=== PATIENT | female | born 2000 | race Caucasian/White ===

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

== ENCOUNTER 2019-01-28 15:39 | Emergency (ER) | payer BC ==
[2019-01-28 16:00] VITALS: BP 125/83; PULSE 89
--- NOTE | 2019-01-28 16:04 | EDM.PDOC ---
ED HPI GENERAL MEDICAL PROBLEM - General Chief Complaint: Genitourinary Problem Stated Complaint: UTI Time Seen by Provider: 01/28/19 16:04 Source of Information: Reports: Patient - History of Present Illness INITIAL COMMENTS - FREE TEXT/NARRATIVE: HISTORY AND PHYSICAL: History of present illness: [A shunt presents with frequency and dysuria no fever nausea vomiting chills sweats ] Review of systems: As per history of present illness and below otherwise all systems reviewed and negative. Past medical history: As per history of present illness and as reviewed below otherwise noncontributory. Surgical history: As per history of present illness and as reviewed below otherwise noncontributory. Social history: No reported history of drug or alcohol abuse. Family history: As per history of present illness and as reviewed below otherwise noncontributory. Physical exam: HEENT: Atraumatic, normocephalic, pupils reactive, negative for conjunctival pallor or scleral icterus, mucous membranes moist, throat clear, neck supple, nontender, trachea midline. Lungs: Clear to auscultation, breath sounds equal bilaterally, chest nontender. Heart: S1S2, regular, negative for clicks, rubs, or JVD. Abdomen: Soft, nondistended, nontender. Negative for masses or hepatosplenomegaly. Negative for costovertebral tenderness. Pelvis: Stable nontender. Genitourinary: Deferred. Rectal: Deferred. Extremities: Atraumatic, negative for cords or calf pain. Neurovascular unremarkable. Neuro: Awake, alert, oriented. Cranial nerves II through XII unremarkable. Cerebellum unremarkable. Motor and sensory unremarkable throughout. Exam nonfocal. Diagnostics: [UA, hCG ] Therapeutics: [Cipro ] Impression: [ UTI ] Definitive disposition and diagnosis as appropriate pending reevaluation and review of above. pelvic Pain Score (Numeric/FACES): 5 - Related Data Allergies Allergy/AdvReac Type Severity Reaction Status Date / Time No Known Allergies Allergy Verified 01/28/19 16:00 Home Meds: Home Meds . [No Known Home Meds] 01/28/19 [History] Past Medical History - Past Health History Medical/Surgical History: Denies Medical/Surgical History - Infectious Disease History Infectious Disease History: Reports: None Social & Family History - Family History Family Medical History: Noncontributory - Tobacco Use Smoking Status *Q: Unknown Ever Smoked - Caffeine Use Caffeine Use: Reports: Coffee, Energy Drinks, Soda, Tea - Recreational Drug Use Recreational Drug Use: Yes Drug Use in Last 12 Months: Yes Recreational Drug Type: Reports: Marijuana/Hashish Recreational Drug Use Frequency: Weekly ED ROS GENERAL - Review of Systems Review Of Systems: See Below ED EXAM, GENERAL - Physical Exam Exam: See Below Course - Vital Signs Last Recorded V/S: Last Vital Signs Temp 96.7 F 01/28/19 15:58 Pulse 89 01/28/19 15:58 Resp 18 01/28/19 15:58 BP 125/83 01/28/19 15:58 Pulse Ox 98 01/28/19 15:58 - Orders/Labs/Meds Orders: Active Orders 24 hr Category Date Time Status CULTURE URINE [RM] Stat Lab 01/28/19 16:00 Received Labs: Laboratory Tests 01/28/19 01/28/19 Range/Units 16:00 16:00 Urine Color ORANGE Urine Appearance SLT CLOUDY Urine pH 7.5 (5.0-8.0) Ur Specific [place] 1.010 (1.001-1.035) Urine Protein 100 H (NEGATIVE) mg/dL Urine Glucose (UA) 100 H (NEGATIVE) mg/dL Urine Ketones NEGATIVE (NEGATIVE) mg/dL Urine Occult Blood MODERATE H (NEGATIVE) Urine Nitrite POSITIVE H (NEGATIVE) Urine Bilirubin NEGATIVE (NEGATIVE) Urine Urobilinogen 4.0 H (<2.0) EU/dL Ur Leukocyte Esterase LARGE H (NEGATIVE) Urine RBC 20-30 (0-2/HPF) Urine WBC 40-50 (0-5/HPF) Ur Epithelial Cells OCCASIONAL (NONE-FEW) Urine Bacteria RARE (NEGATIVE) Urine HCG, Qual NEGATIVE (NEGATIVE) Meds: Medications Discontinued Medications Generic Name Dose Route Start Last Admin Trade Name Jonathonq PRN Reason Stop Dose Admin Ciprofloxacin 500 mg 01/28/19 16:49 Ciprofloxacin Hcl PO 01/28/19 16:50 ONETIME ONE Departure - Departure Time of Disposition: 16:51 Disposition: Home, Self-Care 01 Condition: Good Clinical Impression: UTI, Urinary tract infectious disease - Discharge Information Referrals: PCP,Unknown [Primary Care Provider] - Forms: ED Department Discharge Additional Instructions: The following information is given to patients seen in the emergency department who are being discharged to home. This information is to outline your options for follow-up care. We provide all patients seen in our emergency department with a follow-up referral. The need for follow-up, as well as the timing and circumstances, are variable depending upon the specifics of your emergency department visit. If you don't have a primary care physician on staff, we will provide you with a referral. We always advise you to contact your personal physician following an emergency department visit to inform them of the circumstance of the visit and for follow-up with them and/or the need for any referrals to a consulting specialist. The emergency department will also refer you to a specialist when appropriate. This referral assures that you have the opportunity for follow-up care with a specialist. All of these measure are taken in an effort to provide you with optimal care, which includes your follow-up. Under all circumstances we always encourage you to contact your private physician who remains a resource for coordinating your care. When calling for follow-up care, please make the office aware that this follow-up is from your recent emergency room visit. If for any reason you are refused follow-up, please contact the [facility] emergency department at and asked to speak to the emergency department charge nurse. - My Orders Last 24 Hours: My Active Orders 01/28/19 16:00 CULTURE URINE [RM] Stat - Assessment/Plan Last 24 Hours: My Active Orders 01/28/19 16:00 CULTURE URINE [RM] Stat
[2019-01-28] MEDS ORDERED: Ciprofloxacin 500 MG Tab PO ONE (16:49)
== END 2019-01-28 16:58 | disposition home or self-care (01) ==
LOC: MW.ED 15:39
DX: N39.0 Urinary tract infection, site not specified (principal)
CPT/HCPCS: 81001; 81025; 87086; 99283; A9270

== ENCOUNTER 2019-07-10 08:02 | Emergency (ER) | payer BC, OTHER ==
[2019-07-10] MEDS ORDERED: Acetaminophen 500 MG Tab PO ONE (08:23)
[2019-07-10] MEDS ORDERED: Ibuprofen 800 MG Tab PO ONE (08:23)
[2019-07-10] MEDS ORDERED: Dexamethasone 4 MG Tab PO ONE (08:24)
[2019-07-10 08:26] VITALS: BP 109/65; PULSE 102
--- NOTE | 2019-07-10 08:38 | EDM.PDOC ---
ED HPI GENERAL MEDICAL PROBLEM - General Chief Complaint: ENT Problem Stated Complaint: TONSIL PAIN AND FEVER Time Seen by Provider: 07/10/19 08:38 - History of Present Illness INITIAL COMMENTS - FREE TEXT/NARRATIVE: HPI 19-year-old female presents for evaluation of one day of painful sore throat, notes that swelling worsens pain, denies further symptoms, no headache, neck stiffness, changes in vision or hearing, no fevers or chills. Endorses subjective body aches.No new sexual contacts. M/S/F/SocHx notable for: please see HPI; remainder reviewed with patient and in chart. ROS: Negative constitutional, eye, cardiovascular, pulmonary, GI, , MSK, skin , neurologic, psychiatric, endocrine unless noted in the HPI. Exam Gen: Pleasant, non-toxic appearing, resting comfortably. HEENT: Normocephalic, atraumatic. * Ears - TMs with serous effusions bilaterally, bilateral external auditory canals without erythema, inflammation, or swelling, bilateral mastoids nontender without overlying erythema, swelling, or warmth. * Eyes - Bilateral eyes without injection, swelling, or discharge, no proptosis or periorbital erythema, swelling, warmth, or tenderness. * Mouth - Anterior oropharynx with MMM, no lesions appreciated, floor of the mouth is soft and without swelling. Posterior oropharynx is symmetrical tonsillar swelling without exudate, uvula midline, no postnasal drip. No further lesions appreciated. * Nose - Nares without crusting or discharge. * Neck - Neck supple without posterior or anterior cervical chain lymphadenopathy bilaterally. Resp: labored respirations with a normal work of breathing. Card: extremities warm and well perfused. GI: Non-tender to palpation throughout all quadrants, no masses or organomegaly appreciated. : Deferred MSK: No visible deformities, strength and tone without visually appreciable deficit. Neuro: alert and oriented 3, no facial asymmetry, vision and hearing WNL. Heme/Lymph: Deferred Skin: Normal color with no visible lesions (other than noted above). Psych: Mood and affect appropriate. Labs / Imaging (pertinent): rapid strep negative. MDM Previous chart, nursing note, labs, imaging, and vitals reviewed. A: 19-year-old female presents for evaluation of one day of painful sore throat , notes that swelling worsens pain, denies further symptoms, no headache, neck stiffness, changes in vision or hearing, no fevers or chills. DDx: pharyngitis (HSV vs viral NOS vs GAS vs gonoccocal vs bacterial NOS)], EBV , HIV, candidiasis, sinusitis (bacterial, viral), peritonsillar cellulitis, [employer] , RPA, Raymon's angina, epiglottitis. Evaluation: patient with clinically apparent bilateral pharyngitis, rapid strep negative, no features identified on history for gonococcal pharyngitis, oral mucosa without lesions consistent with HSV or candidiasis, doubt bacterial sinusitis given duration of symptoms, low suspicion for peritonsillar cellulitis or abscess given the absence of asymmetric swelling or uvular deviation, RPA is unlikely as the patient can comfortably flex and extend their neck and swallow without difficulty. As phonation is intact and breathing is unlabored doubt epiglottitis. The floor of the mouth is without evidence of Raymon's angina. Lemierre's disease was considered but as the patient does not have signs of [employer] or sepsis, further evaluation was not indicated. ED Course: No clinically significant changes. Patient given 10 mg dexamethasone PO, 1 g acetaminophen, and ibuprofen 800 mg. Disposition: Discharge with return to care as needed. Return to care indications provided. Impression: Pharyngitis. throat Pain Score (Numeric/FACES): 5 - Related Data Allergies Allergy/AdvReac Type Severity Reaction Status Date / Time No Known Allergies Allergy Verified 01/28/19 16:00 Home Meds: Home Meds . [No Known Home Meds] 01/28/19 [History] Past Medical History - Past Health History Medical/Surgical History: Denies Medical/Surgical History Neurological History: Reports: Brain Injury, Migraines - Infectious Disease History Infectious Disease History: Reports: None Social & Family History - Family History Family Medical History: Noncontributory - Tobacco Use Smoking Status *Q: Light Tobacco Smoker Years of Tobacco use: 1 Packs/Tins Daily: 1 - Caffeine Use Caffeine Use: Reports: Coffee, Energy Drinks, Soda, Tea - Recreational Drug Use Recreational Drug Use: No ED ROS GENERAL - Review of Systems Review Of Systems: See Below ED EXAM, GENERAL - Physical Exam Exam: See Below Course - Vital Signs Last Recorded V/S: Last Vital Signs Temp 37.1 C 07/10/19 08:21 Pulse 102 H 07/10/19 08:21 Resp 16 07/10/19 08:21 BP 109/65 07/10/19 08:21 Pulse Ox 97 07/10/19 08:21 - Orders/Labs/Meds Orders: Active Orders 24 hr Category Date Time Status Communication Order [RC] STAT Care 07/10/19 08:36 Ordered CULTURE STREP A CONFIRMATION [] Stat Lab 07/10/19 05:15 Results INFLUENZA A+B AG SCREEN [] Stat Lab 07/10/19 08:20 Ordered STREP SCRN A RAPID W CULT CONF [] Stat Lab 07/10/19 05:15 Results Meds: Medications Discontinued Medications Generic Name Dose Route Start Last Admin Trade Name Hellen PRN Reason Stop Dose Admin Acetaminophen 1,000 mg 07/10/19 08:23 Tylenol Extra Strength PO 07/10/19 08:24 ONETIME ONE Dexamethasone 10 mg 07/10/19 08:24 Dexamethasone PO 07/10/19 08:25 ONETIME ONE Ibuprofen 800 mg 07/10/19 08:23 Motrin PO 07/10/19 08:24 ONETIME ONE Departure - Departure Time of Disposition: 08:37 Disposition: Home, Self-Care 01 Condition: Good Clinical Impression: Pharyngitis - Discharge Information Referrals: PCP,None [Primary Care Provider] - Additional Instructions: You were in seen in the [facility] Emergency Department for evaluation of a sore throat, the time of your evaluation your found have pharyngitis. This is typically a self limited disease that will resolve in 4-5 days. You have been given a dose steroids to reduce inflammation and should take ibuprofen and acetaminophen instructed below. Please read and follow all of the instructions below. Please follow up with your primary care physician within 48 hours repeat evaluation. When calling for follow-up care, please make the office aware that this follow-up is from your recent emergency room visit. If for any reason you are refused follow-up, please contact the [facility] Emergency Department at and asked to speak to the emergency department charge nurse. Your care today was limited to identifying and treating emergent medical problems only. Many people have subtle differences in their test results that require follow up with their outpatient physician(s) to correctly determine if this represents a normal variation or concerning abnormality with respect to your specific health. The care given to you today was limited to identifying and treating emergent medical problems - you need to request a copy of all of your medical records from today's visit and follow up with your outpatient physician(s) to review both today's visit and your overall health. If you have any new symptoms or if you are at all concerned about your health please return immediately to the emergency department. Prescriptions: If you are uninsured or have financial difficulties with filling your prescription(s), you may consider using a free pharmacy discount service such as [employer] ([employer]) or [employer] ([employer]). These services allow you to search for a medication on your phone (or computer) and obtain a coupon that usually has a significant discount from the list foster at a pharmacy. Your physician as well as [facility] does not have a financial relationship with either of these services. You may also wish to speak with your physician to determine if lower cost prescriptions are possible. Obtaining primary care: 1. [facility] provides pediatrics (children), family medicine (children, adults, and some obstetrical care), and internal medicine (adults). Further specialty care is also available. Same day appointments are available. They may be contacted at [phone] and are open Tuesday through Tuesday 8 AM to 5 PM. The [facility] are located at [facility], [address] [place] [address] 58. 2. [facility] offers family medicine, internal medicine, [facility], and further specialty care. [facility] may be contacted at [phone]. [facility] is located at [address] [place] [address], [address]. 3. If you have health insurance, please also contact your insurer for a list of accepting providers under your policy, you may contact these providers for further health care. Occupational health: Work related injuries may consider following up with [facility], . Occupational health services are located at [address] [place] [address] and are open Tuesday through Tuesday from 7: 30 am to 5:00 pm. Obstetrical and Gynecological Care: [facility], , Tuesday through Tuesday 8 AM to 5 PM. [address] [place] [address]. Eyecare: If you have an eye injury you should follow up with your squeegeer and former or with [facility], at [phone] or [phone] , they are located at [address] [place] [address]. [facility] Bolivar Verdugo DDS. [address] [facility].[place], [place]. Ph. [phone] Leobardo Verdugo DDS MS. [address] [facility] [address], [place], [place]. Ph. [phone] Rafael Sauceda DDS. 10 05/[address] [place] [address]. Ph. [phone] Mau Major DDS. [address] [facility] [address] [place], [place]. Ph. [phone] Arpit Gomez DDS PC. [address] [facility] [address] [place], [place]. Ph. [phone] Unique Rouse DDS. [address] [facility] Ph. [phone] [facility]. [address] [place], [place]. Ph. [phone] [facility]. [address] [place] [address], [place], [place]. Ph. [phone] [facility] [address] [place] [address]. Ph. [phone] [facility]. [address] [place] [address] [address] [place], [place]. Ph. [facility]. [address] [facility] [address] [place], [place]. Ph. [phone] Pharyngitis You have a severe sore throat caused by a viral or bacterial infection. These infections usually get better in 4-7 days with supportive care. You may use the following to reduce your pain: Ibuprofen 600 mg every 6-8 hours. Acetaminophen 1,000 mg every 6 hours. Over the counter throat lozenges. Warm liquids with honey may help. Please return to the emergency department if you develop any of the following: Difficulty swallowing One tonsil that is much larger than the other. Pain on flexing your neck or difficulty bending your neck Swelling below your tongue Rash Red or brown urine High fevers or chills If you are otherwise concerned about your health Please call your primary care physician if you are not feeling much better in 4 days. You make take over the counter Acetaminophen (Tylenol) and Ibuprofen (Motrin or Aleve) as directed below for relief of pain. Take 600 mg of ibuprofen (three 200 mg tablets) with a glass of water every 6-8 hours as needed for pain or fever. Do not take if you have ulcers, GI bleeding, are , or are allergic to ibuprofen. Take 1,000 mg of acetaminophen (two 500 mg tablets) with a glass of water every 6-8 hours as needed for pain. Do not take if you are allergic to acetaminophen. If you have liver disease, please reduce your dose to a maximum of 2,000 mg per day. You can take these medications at the same time or on separate schedules. Do not take for more than 10 days. Do not take with alcohol or other acetaminophen containing medications. This medication may cause a mildly upset stomach, if so take it with a small snack. Stop taking it if you have persistent abdominal pain, heartburn, or any stomach pain. Do not take this medication if you have known ulcers. Please read the warnings at the end of this document regarding these medications. IBUPROFEN WARNING: This drug may infrequently cause serious (rarely fatal) bleeding from the stomach or intestines. Also, related drugs rarely have caused blood clots to form, resulting in heart attacks and strokes. This medication might also rarely cause similar problems. Talk to your doctor or pharmacist about the benefits and risks of treatment, as well as other possible medication choices. If you notice any of the following rare but very serious side effects, stop taking ibuprofen and seek immediate medical attention: black stools, persistent stomach/abdominal pain, vomit that looks like coffee grounds, chest pain, weakness on one side of the body, sudden vision changes, slurred speech. IBUPROFEN SIDE EFFECTS: Upset stomach, nausea, vomiting, heartburn, headache, diarrhea, constipation, drowsiness, and dizziness may occur. If any of these effects persist or worsen, notify your doctor or pharmacist promptly. If your doctor has directed you to use this medication, remember that he or she has judged that the benefit to you is greater than the risk of side effects. Many people using this medication do not have serious side effects. Tell your doctor immediately if any of these serious side effects occur: stomach pain, swelling of the hands or feet, sudden or unexplained weight gain, ringing in the ears ( tinnitus). Tell your doctor immediately if any of these unlikely but serious side effects occur: vision changes, rapid or pounding heartbeat, easy bruising or bleeding, difficult/painful swallowing. Tell your doctor immediately if any of these highly unlikely but very serious side effects occur: change in amount of urine, severe headache, very stiff neck, mental/mood changes, persistent sore throat or fever. This drug may rarely cause serious (possibly fatal) liver disease. If you notice any of the following highly unlikely but very serious side effects, stop taking ibuprofen and consult your doctor or pharmacist immediately: yellowing eyes and skin, dark urine, unusual/extreme tiredness. An allergic reaction to this drug is unlikely, but seek immediate medical attention if it occurs. Symptoms of an allergic reaction include: rash, itching/ swelling (especially of the face/tongue/throat), severe dizziness, trouble breathing. This is not a complete list of possible side effects. ACETAMINOPHEN SIDE EFFECTS: This drug usually has no side effects. If you do not have liver problems, the maximum dose of acetaminophen for adults is 4 grams per day (4000 milligrams). Taking more than the maximum daily amount may cause serious (possibly fatal) liver damage. Get medical help right away if you have any of the following symptoms of liver damage: persistent nausea/vomiting, extreme tiredness, stomach/abdominal pain, yellowing eyes/skin, dark urine. If you have liver problems, consult your doctor or pharmacist for a safe dosage of this medication. A very serious allergic reaction to this drug is rare. However , get medical help right away if you notice any symptoms of a serious allergic reaction, including: rash, itching/swelling (especially of the face/tongue/ throat), severe dizziness, trouble breathing. This is not a complete list of possible side effects. If you notice other effects not listed above, contact your doctor or pharmacist. DRUG INTERACTIONS: Your healthcare professionals (e.g., doctor or pharmacist) may already be aware of any possible drug interactions and may be monitoring you for it. Do not start, stop or change the dosage of any medicine before checking with them first. This drug should not be used with the following medications because very serious interactions may occur: cidofovir, ketorolac. If you are currently using any of these medications listed above, tell your doctor or pharmacist before starting ibuprofen. Before using this medication, tell your doctor or pharmacist of all prescription and nonprescription/herbal products you may use, especially of: anti-platelet drugs (e.g., cilostazol, clopidogrel), oral bisphosphonates (e.g., alendronate), other medications for arthritis (e.g., aspirin, methotrexate), "blood thinners" (e.g., enoxaparin, heparin, warfarin), corticosteroids (e.g., prednisone), cyclosporine, desmopressin, high blood pressure drugs (including JASMIN inhibitors such as captopril, angiotensin II receptor antagonists such as losartan, and beta- blockers such as metoprolol), lithium, pemetrexed, "water pills" (diuretics such as furosemide, hydrochlorothiazide, triamterene). Check all prescription and nonprescription medicine labels carefully for other pain/fever drugs ( NSAIDs such as aspirin, celecoxib, naproxen). These drugs are similar to ibuprofen, so taking one of these drugs while also taking ibuprofen may increase your risk of side effects. Consult your doctor or pharmacist for more details. However, if your doctor has prescribed low doses of aspirin to prevent heart attack or stroke (usually at dosages of 81-325 milligrams a day), you should continue to take the aspirin. Daily use of ibuprofen may decrease aspirin 's ability to prevent heart attack/stroke. Talk to your doctor about using a different medication (e.g., acetaminophen) to treat pain/fever. If you must take ibuprofen, talk to your doctor about possibly taking immediate-release aspirin (not enteric-coated) while also taking the ibuprofen dose apart from your aspirin dose. Do not increase your daily dose of aspirin or change the way you take aspirin/other medications without your doctor's approval. This document does not contain all possible interactions. Therefore, before using this product, tell your doctor or pharmacist of all the products you use. Keep a list of all your medications with you, and share the list with your doctor and pharmacist. Sepsis Event Note - Evaluation Sepsis Screening Result: No Definite Risk - Focused Exam Vital Signs: Vital Signs Temp Pulse Resp BP Pulse Ox 07/10/19 08:21 37.1 C 102 H 16 109/65 97 Date Exam was Performed: 07/10/19 Time Exam was Performed: 08:37 - My Orders Last 24 Hours: My Active Orders 07/10/19 05:15 CULTURE STREP A CONFIRMATION [RM] Stat STREP SCRN A RAPID W CULT CONF [RM] Stat 07/10/19 08:20 INFLUENZA A+B AG SCREEN [RM] Stat 07/10/19 08:36 Communication Order [RC] STAT - Assessment/Plan Last 24 Hours: My Active Orders 07/10/19 05:15 CULTURE STREP A CONFIRMATION [RM] Stat STREP SCRN A RAPID W CULT CONF [RM] Stat 07/10/19 08:20 INFLUENZA A+B AG SCREEN [RM] Stat 07/10/19 08:36 Communication Order [RC] STAT
== END 2019-07-10 08:55 | disposition home or self-care (01) ==
LOC: MW.ED 08:02
DX: J02.9 Acute pharyngitis, unspecified (principal); F17.210 Nicotine dependence, cigarettes, uncomplicated
CPT/HCPCS: 87081; 87804; 87880; 99283; A9270; J8540; 99282

== ENCOUNTER 2019-07-20 18:09 | Emergency (ER) | payer SELFPAY ==
--- NOTE | 2019-07-20 18:59 | EDM.PDOC ---
ED HPI GENERAL MEDICAL PROBLEM - General Chief Complaint: ENT Problem Stated Complaint: CYST ON TONSIL Time Seen by Provider: 07/20/19 18:23 Source of Information: Reports: Patient History Limitations: Reports: No Limitations - History of Present Illness INITIAL COMMENTS - FREE TEXT/NARRATIVE: HISTORY AND PHYSICAL: History of present illness: Patient is a 19-year-old female who presents to the emergency room with complaints of sore throat. She states she was seen in the emergency room last week and swabbed for strep throat which was negative. She was given a prescription for a steroid and states her symptoms felt somewhat better for 1 or 2 days. She states the redness, irritation and pain has worsened over the last 2 days, most bothersome on her right tonsilar area. She has been alternating Tylenol and ibuprofen with short-term relief. She is concerned she has a tonsillar abscess. Patient denies any fever, chills, headache, change in vision, syncope or near syncope. Denies any chest pain, back pain, shortness of breath or cough. Denies any abdominal pain, nausea, vomiting, diarrhea, constipation or dysuria. Denies any chance of - states she took a test at home today and it was negative. Patient has been eating and drinking appropriately. Review of systems: As per history of present illness and below otherwise all systems reviewed and negative. Past medical history: As per history of present illness and as reviewed below otherwise noncontributory. Surgical history: As per history of present illness and as reviewed below otherwise noncontributory. Social history: See social history for further information Family history: As per history of present illness and as reviewed below otherwise noncontributory. Physical exam: General: Well-developed and well-nourished 19-year-old female. Alert and oriented. Nontoxic-appearing and in no acute distress. HEENT: Atraumatic, normocephalic, pupils equal and reactive bilaterally, negative for conjunctival pallor or scleral icterus, mucous membranes moist, TMs normal bilaterally, throat erythematous with mild exudate noted bilaterally , +1 grade tonsils (right slightly larger than left). No difficulty swallowing. Airway patent. Her neck supple, nontender, trachea midline. She is able to move her neck in all directions without impingement. No drooling or trismus noted. No meningeal signs. No hot potato voice noted. Lungs: Clear to auscultation, breath sounds equal bilaterally, chest nontender. Heart: S1S2, regular rate and rhythm without overt murmur Abdomen: Soft, nondistended, nontender. Negative for masses or hepatosplenomegaly. Negative for costovertebral tenderness. Skin: Intact, warm, dry. No lesions or rashes noted. Extremities: Atraumatic, moves all extremities per self without difficulty or deficits, negative for cords or calf pain. Neurovascular unremarkable. Neuro: Awake, alert, oriented. Cranial nerves II through XII unremarkable. Cerebellum unremarkable. Motor and sensory unremarkable throughout. Exam nonfocal. Notes: T shows moderate hypertrophy of the adenoids and mild bilateral enlargement of the pharyngeal tonsils consistent with tonsillitis. There is no evidence of abscess. She does have some mild bilateral superior jugular chain lymphadenopathy, probably reactive. She does have a leukocytosis. Other than her elevated white count she is nontoxic in appearance. She is able to eat and drink. She currently has no fever and is not tachycardic. We will treat her as outpatient with oral antibiotics. We discussed signs and symptoms that would prompt her to return to the emergency room. I would like her to follow- up with clinical research nurse. Supportive care measures were reviewed and discussed. Voices understanding and is agreeable to plan of care. Denies any further questions or concerns at this time. Diagnostics: CBC, CMP, Strep, CT soft tissue neck Therapeutics: IV fluids Prescription: Augmentin Tylenol with Codeine (#10) Impression: Tonsillitis Plan: 1. Take your medication as directed. Good handwashing and contact precautions as we discussed. 2. Warm Salt water gargles (rinse and spit) 3-4 x daily. Please get a new tooth brush after completion of your medication 3. Tylenol and or ibuprofen as needed for pain management. 4. Follow-up with your primary care provider in the next 1-2 days. Return to the ED as needed and as discussed. Definitive disposition and diagnosis as appropriate pending reevaluation and review of above. right tonsil area Pain Score (Numeric/FACES): 3 - Related Data Allergies Allergy/AdvReac Type Severity Reaction Status Date / Time No Known Allergies Allergy Verified 01/28/19 16:00 Home Meds: Home Meds . [No Known Home Meds] 01/28/19 [History] Acetaminophen with Codeine [Tylenol with Codeine #3 Tablet] 1 each PO Q4HR PRN # 10 tablet 07/20/19 [Rx] Amoxicillin/Clavulanate K [Augmentin 875-125 MG] 1 tab PO BID 10 Days #20 tablet 07/20/19 [Rx] Past Medical History - Past Health History Medical/Surgical History: Denies Medical/Surgical History Neurological History: Reports: Brain Injury, Concussion, Migraines - Infectious Disease History Infectious Disease History: Reports: None Social & Family History - Family History Family Medical History: Noncontributory - Tobacco Use Smoking Status *Q: Light Tobacco Smoker Years of Tobacco use: 1 Packs/Tins Daily: 0.1 - Caffeine Use Caffeine Use: Reports: Coffee, Energy Drinks, Soda, Tea - Recreational Drug Use Recreational Drug Use: Yes Recreational Drug Type: Reports: Marijuana/Hashish ED ROS ENT - Review of Systems Review Of Systems: Comprehensive ROS is negative, except as noted in HPI. ED EXAM, ENT - Physical Exam Exam: See Below (See dictation) Course - Vital Signs Last Recorded V/S: Last Vital Signs Temp 97.3 F 07/20/19 20:38 Pulse 85 07/20/19 20:38 Resp 16 07/20/19 20:38 BP 114/66 07/20/19 20:38 Pulse Ox 100 07/20/19 20:38 - Orders/Labs/Meds Orders: Active Orders 24 hr Category Date Time Status CULTURE STREP A CONFIRMATION [RM] Stat Lab 07/20/19 18:32 Results STREP SCRN A RAPID W CULT CONF [RM] Stat Lab 07/20/19 18:32 Results Labs: Laboratory Tests 07/20/19 07/20/19 Range/Units 18:51 18:51 WBC 17.85 H (4.0-11.0) K/uL RBC 4.21 L (4.30-5.90) M/uL Hgb 13.4 (12.0-16.0) g/dL Hct 40.8 (36.0-46.0) % MCV 96.9 (80.0-98.0) fL MCH 31.8 (27.0-32.0) pg MCHC 32.8 (31.0-37.0) g/dL RDW Std Deviation 44.4 (28.0-62.0) fl RDW Coeff of Fabian 13 (11.0-15.0) % Plt Count 348 (150-400) K/uL MPV 8.90 (7.40-12.00) fL Add Manual Diff YES Neutrophils % (Manual) 74 (48.0-80.0) % Lymphocytes % (Manual) 22 (16.0-40.0) % Monocytes % (Manual) 4 (0.0-15.0) % Nucleated RBC % 0.0 /100WBC Absolute Seg Neuts 13.2 H (1.4-5.7) Lymphocytes # (Manual) 3.9 H (0.6-2.4) Monocytes # (Manual) 0.7 (0.0-0.8) Nucleated RBCs # 0 K/uL Sodium 135 L (136-145) mmol/L Potassium 3.9 (3.5-5.1) mmol/L Chloride 103 (98-107) mmol/L Carbon Dioxide 26.7 (21.0-32.0) mmol/L BUN 14 (7.0-18.0) mg/dL Creatinine 0.6 (0.6-1.0) mg/dL Est Cr Clr Drug Dosing 106.20 mL/min Estimated GFR (MDRD) > 60.0 ml/min Glucose 99 (74-106) mg/dL Calcium 8.9 (8.5-10.1) mg/dL Total Bilirubin 0.2 (0.2-1.0) mg/dL AST 15 (15-37) IU/L ALT 21 (14-63) IU/L Alkaline Phosphatase 70 (46-116) U/L Total Protein 7.8 (6.4-8.2) g/dL Albumin 3.9 (3.4-5.0) g/dL Globulin 3.9 (2.6-4.0) g/dL Albumin/Globulin Ratio 1.0 (0.9-1.6) Meds: Medications Discontinued Medications Generic Name Dose Route Start Last Admin Trade Name Freq PRN Reason Stop Dose Admin Sodium Chloride 1,000 mls @ 999 mls/hr 07/20/19 19:05 07/20/19 19:42 Normal Saline IV 07/20/19 20:05 999 mls/hr STAT ONE Administration Iopamidol 100 ml 07/20/19 19:19 07/20/19 19:43 Isovue-370 (76%) IVPUSH 07/20/19 19:20 100 ml ONETIME STA Administration Departure - Departure Time of Disposition: 20:38 Disposition: Home, Self-Care 01 Clinical Impression: Tonsillitis - Discharge Information Prescriptions: Acetaminophen with Codeine [Tylenol with Codeine #3 Tablet] 1 each PO Q4HR PRN # 10 tablet PRN Reason: Pain Amoxicillin/Clavulanate K [Augmentin 875-125 MG] 1 tab PO BID 10 Days #20 tablet Instructions: Tonsillitis, [id number] Referrals: PCP,None [Primary Care Provider] - Forms: ED Department Discharge Additional Instructions: The following information is given to patients seen in the emergency department who are being discharged to home. This information is to outline your options for follow-up care. We provide all patients seen in our emergency department with a follow-up referral. The need for follow-up, as well as the timing and circumstances, are variable depending upon the specifics of your emergency department visit. If you don't have a primary care physician on staff, we will provide you with a referral. We always advise you to contact your personal physician following an emergency department visit to inform them of the circumstance of the visit and for follow-up with them and/or the need for any referrals to a consulting specialist. The emergency department will also refer you to a specialist when appropriate. This referral assures that you have the opportunity for follow-up care with a specialist. All of these measure are taken in an effort to provide you with optimal care, which includes your follow-up. Under all circumstances we always encourage you to contact your private physician who remains a resource for coordinating your care. When calling for follow-up care, please make the office aware that this follow-up is from your recent emergency room visit. If for any reason you are refused follow-up, please contact the [facility] Emergency Department at and asked to speak to the emergency department charge nurse. [facility] [address] [place] [id number] [address] [address] 1. Take your medication as directed. Good handwashing and contact precautions as we discussed. 2. Warm Salt water gargles (rinse and spit) 3-4 x daily. Please get a new tooth brush after completion of your medication 3. Tylenol and or ibuprofen as needed for pain management. 4. Follow-up with your primary care provider or ENT provider in the next 1-2 days. Return to the ED as needed and as discussed. Sepsis Event Note - Evaluation Sepsis Screening Result: No Definite Risk - Focused Exam Vital Signs: Vital Signs Temp Pulse Resp BP Pulse Ox 07/20/19 20:38 97.3 F 85 16 114/66 100 07/20/19 18:17 96.8 F L 89 18 119/71 96 Date Exam was Performed: 07/20/19 Time Exam was Performed: 20:55 - My Orders Last 24 Hours: My Active Orders 07/20/19 18:32 CULTURE STREP A CONFIRMATION [RM] Stat STREP SCRN A RAPID W CULT CONF [RM] Stat - Assessment/Plan Last 24 Hours: My Active Orders 07/20/19 18:32 CULTURE STREP A CONFIRMATION [RM] Stat STREP SCRN A RAPID W CULT CONF [RM] Stat
[2019-07-20] MEDS ORDERED: Sodium Chloride 0.9% 1,000 ML IV ONE (19:05)
[2019-07-20 19:19] LABS: BLOOD UREA NITROGEN,BUN 14 mg/dL (7.0-18.0); CARBON DIOXIDE,CO2 26.7 mmol/L (21.0-32.0); CHLORIDE,CL 103 mmol/L (98-107); GLUCOSE RANDOM 99 mg/dL (74-106); POTASSIUM,K 3.9 mmol/L (3.5-5.1); SODIUM,NA 135 mmol/L (136-145)
[2019-07-20] MEDS ORDERED: Iopamidol 755 Mg/ML 100 ML Bottle IVPUSH STA (19:19)
--- NOTE | 2019-07-20 20:05 | CT ---
INDICATION: Sore throat. Possible abscess. COMPARISON: None available TECHNIQUE: CT examination of the neck is performed using spiral technique during the uneventful intravenous administration of 100 cc of Isovue 370.. 3 mm thick axial sections were made along with coronal and sagittal sections. Please note that all CT scans at this facility use dose modulation, iterative reconstruction, and/or weight-based dosing when appropriate to reduce radiation dose to as low as reasonably achievable. FINDINGS: There is moderate fullness of the adenoidal soft tissues. There is no sign of any abscess within these tissues. The pharyngeal tonsils are mildly enlarged, representing nonspecific tonsillitis. There is no sign of any abscess within the tonsils. The airway structures are otherwise normal in appearance. There is mild bilateral superior jugular chain lymphadenopathy with lymph nodes bilaterally having short axis diameter of 11 millimeters, nonspecific. The salivary glands are normal in appearance. The visualized posterior fossa, mastoids, skull base, orbits, and paranasal sinuses are normal in appearance. The great vessels are unremarkable. The thyroid gland is normal in appearance. The visualized upper chest is clear. The visualized upper mediastinum is normal in appearance. The osseous structures are unremarkable. IMPRESSION: Moderate hypertrophy of the adenoids and mild bilateral enlargement of the pharyngeal tonsils consistent with tonsillitis. No sign of any abscess. No sign of impending airway obstruction. Mild bilateral superior jugular chain lymphadenopathy (level 2), probably reactive. Please note that all CT scans at this facility use dose modulation, iterative reconstruction, and/or weight-based dosing when appropriate to reduce radiation dose to as low as reasonably achievable. Dictated by Tico Guerrero MD @ Jul 20 2019 8:00PM Signed by Dr. Tico Guerrero @ Jul 20 2019 8:03PM
[2019-07-20 20:39] VITALS: BP 114/66; PULSE 85
== END 2019-07-20 20:53 | disposition home or self-care (01) ==
LOC: MW.ED 18:09
DX: J03.90 Acute tonsillitis, unspecified (principal); F17.210 Nicotine dependence, cigarettes, uncomplicated
CPT/HCPCS: 36415; 70491; 80053; 85025; 87081; 87880; 96360; 99283; J7030; Q9967

== ENCOUNTER 2019-11-10 02:33 | Emergency (ER) | payer OTHER ==
[2019-11-10] MEDS ORDERED: Lactated Ringers 1,000 ML IV ONE (02:50)
[2019-11-10] MEDS ORDERED: Ondansetron 4 MG/2 ML SDV IVPUSH ONE (02:50)
[2019-11-10] MEDS ORDERED: Sodium Chloride 0.9% 10 ML Syringe FLUSH PRN (02:50)
[2019-11-10] MEDS ORDERED: Sodium Chloride 0.9% 2.5 ML Syringe FLUSH PRN (02:50)
--- NOTE | 2019-11-10 02:55 | EDM.PDOC ---
ED HPI GENERAL MEDICAL PROBLEM - General Chief Complaint: General Stated Complaint: NAUSEA, VOMITTING Time Seen by Provider: 11/10/19 02:38 Source of Information: Reports: Patient, Old Records History Limitations: Reports: Intoxication - History of Present Illness INITIAL COMMENTS - FREE TEXT/NARRATIVE: 19-year-old female with past medical history of a subdural hemorrhage and IV drug use presenting with nausea, vomiting, and concern for intoxication. Patient was found with altered mental status at a gas station. She was reportedly drinking vodka all day long. Paramedics were called to evaluate the patient and she was complaining of abdominal pain, nausea, and vomiting. Here in the ER, the patient complains of nausea but denies any abdominal pain. Reports that she vomited earlier but there was no hematemesis. Denies any chest discomfort or shortness of breath. Denies any drug use. States she was feeling extremely anxious earlier when paramedics and police were on scene. No longer feeling as anxious, feeling somewhat better. - Related Data Allergies Allergy/AdvReac Type Severity Reaction Status Date / Time No Known Allergies Allergy Verified 11/10/19 02:40 Home Meds: Home Meds . [No Known Home Meds] 01/28/19 [History] Past Medical History - Past Health History Medical/Surgical History: Denies Medical/Surgical History HEENT History: Reports: None Cardiovascular History: Reports: None Respiratory History: Reports: None Gastrointestinal History: Reports: None Genitourinary History: Reports: None [employer] History: Reports: None Musculoskeletal History: Reports: None Neurological History: Reports: Brain Injury, Concussion, Migraines Psychiatric History: Reports: None Endocrine/Metabolic History: Reports: None Hematologic History: Reports: None Immunologic History: Reports: None Oncologic (Cancer) History: Reports: None Dermatologic History: Reports: None - Infectious Disease History Infectious Disease History: Reports: None - Past Surgical History Head Surgeries/Procedures: Reports: None Social & Family History - Family History Family Medical History: Noncontributory - Tobacco Use Smoking Status *Q: Never Smoker Second Hand Smoke Exposure: No - Caffeine Use Caffeine Use: Reports: None - Recreational Drug Use Recreational Drug Use: Yes Recreational Drug Type: Reports: Marijuana/Hashish ED ROS GENERAL - Review of Systems Review Of Systems: Unable To Obtain Reason Not Obtained: Due to intoxication and altered mental status Respiratory: Denies: Shortness of Breath Cardiovascular: Denies: Chest Pain GI/Abdominal: Reports: Nausea, Vomiting. Denies: Abdominal Pain Psychiatric: Reports: Anxiety ED EXAM, GENERAL - Physical Exam Exam: See Below Free Text/Narrative:: Vital signs reviewed. Nursing notes reviewed. Constitutional: Awake, alert, non-distressed. Head: Normocephalic, atraumatic. Eyes: EOMI, conjunctiva normal, no discharge, no scleral icterus. Pupils 3 mm and reactive Ears, Nose, Throat: External ears and nose normal, moist oral mucosa. Cardiovascular: 2+ radial pulse, capillary refill less than 2 seconds. Pulmonary: normal work of breathing, no accessory muscle use. Abdomen/GI: Soft, nontender, nondistended, no guarding or rigidity, no masses. Musculoskeletal: No deformities. Integumentary: Appropriate color for ethnicity, warm, dry, no pallor or jaundice, no rash. Neurologic: Sleepy but easily awakens to voice, slurred speech, answering questions appropriately, moving all extremities well. Psychiatric: Impulsive behavior but redirectable Course - Vital Signs Text/Narrative:: Patient hemodynamically stable, afebrile, well-appearing, looks nontoxic. Differential diagnosis includes but is not limited to: alcohol consumption, illicit drugs, CVA, SAH, SDH, TIA, traumatic injury, psychosis, hypo/hyperglycemia, metabolic abnormality, sepsis, meningitis, renal failure, uremia, hepatic or hypertensive encephalopathy, infection, intracerebral tumor, thyrotoxicosis, seizure or post-ictal state, and many others. Labs are reassuring. Ethyl alcohol is elevated 212. Presentation seems to be consistent with acute ethanol intoxication. Patient was observed in the emergency department for a brief period and cleared appropriately. She is able to ambulate without difficulty and is tolerating p.o. intake. No evidence of a gross neurologic deficit to warrant CT imaging at this point. Given her clinical appearance, she is stable to discharge home with outpatient primary care follow-up. Strict emergency department return precautions were provided, patient indicated understanding. All questions were answered prior to departure. Discharged in good condition. Last Recorded V/S: Last Vital Signs Temp 36.1 C 11/10/19 02:35 Pulse 81 11/10/19 05:59 Resp 14 11/10/19 05:59 BP 109/49 L 11/10/19 05:59 Pulse Ox 97 11/10/19 05:59 - Orders/Labs/Meds Orders: Active Orders 24 hr Category Date Time Status Pulse Oximetry [RC] ASDIRECTED Care 11/10/19 02:50 Active Saline Lock Insert [OM.PC] Stat Oth 11/10/19 02:50 Ordered Labs: Laboratory Tests 11/10/19 11/10/19 Range/Units 03:06 03:06 WBC 6.70 (4.0-11.0) K/uL RBC 4.50 (4.30-5.90) M/uL Hgb 14.1 (12.0-16.0) g/dL Hct 42.1 (36.0-46.0) % MCV 93.6 (80.0-98.0) fL MCH 31.3 (27.0-32.0) pg MCHC 33.5 (31.0-37.0) g/dL RDW Std Deviation 43.7 (28.0-62.0) fl RDW Coeff of Fabian 13 (11.0-15.0) % Plt Count 297 (150-400) K/uL MPV 9.30 (7.40-12.00) fL Neut % (Auto) 49.5 (48.0-80.0) % Lymph % (Auto) 45.8 H (16.0-40.0) % [place] % (Auto) 4.3 (0.0-15.0) % Eos % (Auto) 0.1 (0.0-7.0) % Baso % (Auto) 0.3 (0.0-1.5) % Neut # (Auto) 3.3 (1.4-5.7) K/uL Lymph # (Auto) 3.1 H (0.6-2.4) K/uL [place] # (Auto) 0.3 (0.0-0.8) K/uL Eos # (Auto) 0.0 (0.0-0.7) K/uL Baso # (Auto) 0.0 (0.0-0.1) K/uL Nucleated RBC % 0.0 /100WBC Nucleated RBCs # 0 K/uL Sodium 148 H (136-145) mmol/L Potassium 3.5 (3.5-5.1) mmol/L Chloride 109 H (98-107) mmol/L Carbon Dioxide 25.5 (21.0-32.0) mmol/L BUN 6 L (7.0-18.0) mg/dL Creatinine 0.6 (0.6-1.0) mg/dL Est Cr Clr Drug Dosing 111.52 mL/min Estimated GFR (MDRD) > 60.0 ml/min Glucose 156 H (74-106) mg/dL Calcium 9.1 (8.5-10.1) mg/dL Total Bilirubin 0.2 (0.2-1.0) mg/dL AST 17 (15-37) IU/L ALT 19 (14-63) IU/L Alkaline Phosphatase 57 (46-116) U/L Total Protein 7.6 (6.4-8.2) g/dL Albumin 4.5 (3.4-5.0) g/dL Globulin 3.1 (2.6-4.0) g/dL Albumin/Globulin Ratio 1.5 (0.9-1.6) Ethyl Alcohol 212 mg/dL Meds: Medications Discontinued Medications Generic Name Dose Route Start Last Admin Trade Name Freq PRN Reason Stop Dose Admin Lactated Ringer's 1,000 mls @ 999 mls/hr 11/10/19 02:50 11/10/19 03:13 Ringers, Lactated IV 11/10/19 03:50 999 mls/hr .BOLUS ONE Administration Ondansetron HCl 4 mg 11/10/19 02:50 11/10/19 03:13 Zofran IVPUSH 11/10/19 02:51 4 mg ONETIME ONE Administration Sodium Chloride 10 ml 11/10/19 02:50 Saline Flush FLUSH ASDIRECTED PRN Keep Vein Open Sodium Chloride 2.5 ml 11/10/19 02:50 Saline Flush FLUSH ASDIRECTED PRN Keep Vein Open Departure - Departure Time of Disposition: 05:57 Disposition: Home, Self-Care 01 Condition: Good Clinical Impression: Acute alcohol intoxication Qualifiers: Complication of substance-induced condition: uncomplicated Qualified Code(s): F10.920 - Alcohol use, unspecified with intoxication, uncomplicated Nausea and vomiting Qualifiers: Vomiting type: unspecified Vomiting Intractability: unspecified Qualified Code(s): R11.2 - Nausea with vomiting, unspecified - Discharge Information *PRESCRIPTION DRUG MONITORING PROGRAM REVIEWED*: Not Applicable *COPY OF PRESCRIPTION DRUG MONITORING REPORT IN PATIENT PATRICK: Not Applicable Instructions: Binge-Drinking Information, Adult, Nausea and Vomiting, Adult Referrals: Ariadna Toledo PA [Primary Care Provider] - 1 Week (For follow-up without alcohol cessation counseling and any other complaints.) Forms: ED Department Discharge Additional Instructions: The following information is given to patients seen in the emergency department who are being discharged to home. This information is to outline your options for follow-up care. We provide all patients seen in our emergency department with a follow-up referral. The need for follow-up, as well as the timing and circumstances, are variable depending upon the specifics of your emergency department visit. If you don't have a primary care physician on staff, we will provide you with a referral. We always advise you to contact your personal physician following an emergency department visit to inform them of the circumstance of the visit and for follow-up with them and/or the need for any referrals to a consulting specialist. The emergency department will also refer you to a specialist when appropriate. This referral assures that you have the opportunity for follow-up care with a specialist. All of these measure are taken in an effort to provide you with optimal care, which includes your follow-up. Under all circumstances we always encourage you to contact your private p hysician who remains a resource for coordinating your care. When calling for follow-up care, please make the office aware that this follow-up is from your recent emergency room visit. If for any reason you are refused follow-up, please contact the [facility] Emergency Department at and asked to speak to the emergency department charge nurse. [facility] [address] [place] [address] [id number] [address] [address] Sepsis Event Note (ED) - Evaluation Sepsis Screening Result: No Definite Risk - Focused Exam Vital Signs: Vital Signs Temp Pulse Resp BP Pulse Ox 11/10/19 05:59 81 14 109/49 L 97 11/10/19 03:25 78 12 97/60 100 11/10/19 02:35 36.1 C 105 H 16 118/81 95 - My Orders Last 24 Hours: My Active Orders 11/10/19 02:50 Pulse Oximetry [RC] ASDIRECTED Saline Lock Insert [OM.PC] Stat - Assessment/Plan Last 24 Hours: My Active Orders 11/10/19 02:50 Pulse Oximetry [RC] ASDIRECTED Saline Lock Insert [OM.PC] Stat
[2019-11-10 03:28] LABS: BLOOD UREA NITROGEN,BUN 6 mg/dL (7.0-18.0); CARBON DIOXIDE,CO2 25.5 mmol/L (21.0-32.0); CHLORIDE,CL 109 mmol/L (98-107); GLUCOSE RANDOM 156 mg/dL (74-106); POTASSIUM,K 3.5 mmol/L (3.5-5.1); SODIUM,NA 148 mmol/L (136-145)
[2019-11-10 06:00] VITALS: BP 109/49; PULSE 81
== END 2019-11-10 06:15 | disposition home or self-care (01) ==
LOC: MW.ED 02:33
DX: F10.120 Alcohol abuse with intoxication, uncomplicated (principal); R11.2 Nausea with vomiting, unspecified; Y90.7 Blood alcohol level of 200-239 mg/100 ml
CPT/HCPCS: 36415; 80053; 80307; 85025; 96361; 96374; 99284; J2405; J7120

== ENCOUNTER 2019-11-10 15:13 | Emergency (ER) | payer OTHER ==
[2019-11-10] MEDS ORDERED: Ondansetron 4 MG/2 ML SDV IVPUSH ONE (15:38)
[2019-11-10] MEDS ORDERED: Lactated Ringers 1,000 ML IV ONE (15:38)
[2019-11-10] MEDS ORDERED: Alum Hydrox/Mag Hydrox/Simeth 15 ML, Lidocaine 2% 5 ML PO ONE ×2 (15:39)
--- NOTE | 2019-11-10 15:46 | EDM.PDOC ---
ED HPI GENERAL MEDICAL PROBLEM - General Chief Complaint: General Stated Complaint: VOMITING Time Seen by Provider: 11/10/19 15:17 Source of Information: Reports: Patient, Old Records - History of Present Illness INITIAL COMMENTS - FREE TEXT/NARRATIVE: Patient is a 19-year-old female who presented in the early hours of this morning with nausea vomiting and abdominal pain in the setting of significant alcohol intoxication. Patient presents again this afternoon secondary to persistent primarily left upper quadrant and left flank discomfort that comes and goes and is quite sharp. It is associated with persistent nausea and p.o. intolerance. Patient reports she finished a normally timed menstrual cycle yesterday she denies dysuria or hematuria she denies significant lower abdominal discomfort th ere is some radiation into the lower abdomen however. No chest pain no shortness of breath. Symptoms constant and moderate to severe without alleviating factors. ABD, FLANK, HEAD, RIGHT SIDE ABD Pain Score (Numeric/FACES): 10 - Related Data Allergies Allergy/AdvReac Type Severity Reaction Status Date / Time No Known Allergies Allergy Verified 11/10/19 15:31 Home Meds: Home Meds . [No Known Home Meds] 01/28/19 [History] Past Medical History - Past Health History Medical/Surgical History: Denies Medical/Surgical History HEENT History: Reports: None Cardiovascular History: Reports: None Respiratory History: Reports: None Gastrointestinal History: Reports: None Genitourinary History: Reports: None EXPLOSIVE EXPERT History: Reports: None Musculoskeletal History: Reports: None Neurological History: Reports: Brain Injury, Concussion, Migraines Psychiatric History: Reports: None Endocrine/Metabolic History: Reports: None Hematologic History: Reports: None Immunologic History: Reports: None Oncologic (Cancer) History: Reports: None Dermatologic History: Reports: None - Infectious Disease History Infectious Disease History: Reports: None - Past Surgical History Head Surgeries/Procedures: Reports: None Social & Family History - Family History Family Medical History: Noncontributory - Tobacco Use Smoking Status *Q: Unknown Ever Smoked - Caffeine Use Caffeine Use: Reports: None - Recreational Drug Use Recreational Drug Type: Reports: Marijuana/Hashish ED ROS GENERAL - Review of Systems Review Of Systems: See Below Free Text/Narrative/Comment: General: No fever. Skin: No rash. Eyes: No vision problems. ENT: No sore throat. Neck: No neck stiffness. Respiratory: No shortness of breath. Cardiac: No chest pain. Gastrointestinal: Per HPI Urinary: No dysuria. Musculoskeletal: No myalgias/arthralgias. Neurologic: No headache. ED EXAM, GENERAL - Physical Exam Exam: See Below Free Text/Narrative:: General Appearance: No acute distress, appears comfortable Skin: No rash HEENT: Normocephalic/atraumatic, sclera anicteric, mucous membranes dry Neck: Normal range of motion Chest and Lungs: Bilateral breath sounds, clear to auscultation Cardiovascular: Regular rate and rhythm, no murmur Abdomen: Soft, left upper quadrant tenderness Back: Normal Musculoskeletal: No edema or tenderness Neurologic: Awake, alert, no obvious deficits, moving all extremities Psychiatric: Appropriate, cooperative Course - Vital Signs Last Recorded V/S: Last Vital Signs Temp 97.4 F 11/10/19 15:24 Pulse 86 11/10/19 16:43 Resp 16 11/10/19 16:43 BP 100/76 11/10/19 16:43 Pulse Ox 98 11/10/19 16:43 - Orders/Labs/Meds Labs: Laboratory Tests 11/10/19 11/10/19 11/10/19 Range/Units 15:30 15:30 15:55 WBC 10.24 (4.0-11.0) K/uL RBC 4.49 (4.30-5.90) M/uL Hgb 13.9 (12.0-16.0) g/dL Hct 42.7 (36.0-46.0) % MCV 95.1 (80.0-98.0) fL MCH 31.0 (27.0-32.0) pg MCHC 32.6 (31.0-37.0) g/dL RDW Std Deviation 45.5 (28.0-62.0) fl RDW Coeff of Fabian 13 (11.0-15.0) % Plt Count 288 (150-400) K/uL MPV 9.50 (7.40-12.00) fL Neut % (Auto) 74.3 (48.0-80.0) % Lymph % (Auto) 20.2 (16.0-40.0) % [place] % (Auto) 5.0 (0.0-15.0) % Eos % (Auto) 0.1 (0.0-7.0) % Baso % (Auto) 0.4 (0.0-1.5) % Neut # (Auto) 7.6 H (1.4-5.7) K/uL Lymph # (Auto) 2.1 (0.6-2.4) K/uL [place] # (Auto) 0.5 (0.0-0.8) K/uL Eos # (Auto) 0.0 (0.0-0.7) K/uL Baso # (Auto) 0.0 (0.0-0.1) K/uL Nucleated RBC % 0.0 /100WBC Nucleated RBCs # 0 K/uL Sodium (136-145) mmol/L Potassium (3.5-5.1) mmol/L Chloride (98-107) mmol/L Carbon Dioxide (21.0-32.0) mmol/L BUN (7.0-18.0) mg/dL Creatinine (0.6-1.0) mg/dL Est Cr Clr Drug Dosing mL/min Estimated GFR (MDRD) ml/min Glucose (74-106) mg/dL Calcium (8.5-10.1) mg/dL Total Bilirubin (0.2-1.0) mg/dL AST (15-37) IU/L ALT (14-63) IU/L Alkaline Phosphatase (46-116) U/L Total Protein (6.4-8.2) g/dL Albumin (3.4-5.0) g/dL Globulin (2.6-4.0) g/dL Albumin/Globulin Ratio (0.9-1.6) Lipase (73-393) U/L Urine Color YELLOW Urine Appearance CLEAR Urine pH 8.0 (5.0-8.0) Ur Specific [place] 1.020 (1.001-1.035) Urine Protein NEGATIVE (NEGATIVE) mg/dL Urine Glucose (UA) NEGATIVE (NEGATIVE) mg/dL Urine Ketones TRACE H (NEGATIVE) mg/dL Urine Occult Blood NEGATIVE (NEGATIVE) Urine Nitrite NEGATIVE (NEGATIVE) Urine Bilirubin NEGATIVE (NEGATIVE) Urine Urobilinogen 0.2 (<2.0) EU/dL Ur Leukocyte Esterase NEGATIVE (NEGATIVE) Urine RBC NONE SEEN (0-2/HPF) Urine WBC 0-1 (0-5/HPF) Ur Epithelial Cells FEW (NONE-FEW) Urine Bacteria FEW (NEGATIVE) Urine HCG, Qual NEGATIVE (NEGATIVE) 11/10/19 Range/Units 15:55 WBC (4.0-11.0) K/uL RBC (4.30-5.90) M/uL Hgb (12.0-16.0) g/dL Hct (36.0-46.0) % MCV (80.0-98.0) fL MCH (27.0-32.0) pg MCHC (31.0-37.0) g/dL RDW Std Deviation (28.0-62.0) fl RDW Coeff of Fabian (11.0-15.0) % Plt Count (150-400) K/uL MPV (7.40-12.00) fL Neut % (Auto) (48.0-80.0) % Lymph % (Auto) (16.0-40.0) % [place] % (Auto) (0.0-15.0) % Eos % (Auto) (0.0-7.0) % Baso % (Auto) (0.0-1.5) % Neut # (Auto) (1.4-5.7) K/uL Lymph # (Auto) (0.6-2.4) K/uL [place] # (Auto) (0.0-0.8) K/uL Eos # (Auto) (0.0-0.7) K/uL Baso # (Auto) (0.0-0.1) K/uL Nucleated RBC % /100WBC Nucleated RBCs # K/uL Sodium 144 (136-145) mmol/L Potassium 3.8 (3.5-5.1) mmol/L Chloride 107 (98-107) mmol/L Carbon Dioxide 25.4 (21.0-32.0) mmol/L BUN 7 (7.0-18.0) mg/dL Creatinine 0.6 (0.6-1.0) mg/dL Est Cr Clr Drug Dosing 111.52 mL/min Estimated GFR (MDRD) > 60.0 ml/min Glucose 83 (74-106) mg/dL Calcium 9.2 (8.5-10.1) mg/dL Total Bilirubin 0.7 (0.2-1.0) mg/dL AST 19 (15-37) IU/L ALT 22 (14-63) IU/L Alkaline Phosphatase 55 (46-116) U/L Total Protein 7.5 (6.4-8.2) g/dL Albumin 4.3 (3.4-5.0) g/dL Globulin 3.2 (2.6-4.0) g/dL Albumin/Globulin Ratio 1.3 (0.9-1.6) Lipase 97 (73-393) U/L Urine Color Urine Appearance Urine pH (5.0-8.0) Ur Specific [place] (1.001-1.035) Urine Protein (NEGATIVE) mg/dL Urine Glucose (UA) (NEGATIVE) mg/dL Urine Ketones (NEGATIVE) mg/dL Urine Occult Blood (NEGATIVE) Urine Nitrite (NEGATIVE) Urine Bilirubin (NEGATIVE) Urine Urobilinogen (<2.0) EU/dL Ur Leukocyte Esterase (NEGATIVE) Urine RBC (0-2/HPF) Urine WBC (0-5/HPF) Ur Epithelial Cells (NONE-FEW) Urine Bacteria (NEGATIVE) Urine HCG, Qual (NEGATIVE) Meds: Medications Discontinued Medications Generic Name Dose Route Start Last Admin Trade Name Jonathonq PRN Reason Stop Dose Admin Al Hydroxide/Mg Hydroxide 15 0 ml 11/10/19 15:39 11/10/19 15:51 ml/ Lidocaine HCl 5 ml PO 11/10/19 15:40 20 each ONETIME ONE Administration Lactated Ringer's 1,000 mls @ 999 mls/hr 11/10/19 15:38 11/10/19 15:51 Ringers, Lactated IV 11/10/19 16:38 999 mls/hr .BOLUS ONE Administration Ondansetron HCl 4 mg 11/10/19 15:38 11/10/19 15:51 Zofran IVPUSH 11/10/19 15:39 4 mg ONETIME ONE Administration Departure - Departure Time of Disposition: 17:06 Disposition: Home, Self-Care 01 Condition: Good Clinical Impression: Acute alcoholic gastritis - Discharge Information *PRESCRIPTION DRUG MONITORING PROGRAM REVIEWED*: Not Applicable *COPY OF PRESCRIPTION DRUG MONITORING REPORT IN PATIENT PATRICK: Not Applicable Instructions: Gastritis, Adult Referrals: PCP,None [Primary Care Provider] - Forms: ED Department Discharge Additional Instructions: For the rest of today I would eat things that are gentle on your stomach such as soup and simple carbohydrates. I would avoid spicy foods and I would avoid large portions of particularly fatty foods. I encourage you to continue to rehydrate yourself with Pedialyte, or a [id number] mixture of Gatorade or Powerade and water. You could buy some [id number] Maalox as well that will help some with stomach discomfort over the next 24 hours. However, I would expect you to feel much better when you wake up in the morning. The following information is given to patients seen in the emergency department who are being discharged to home. This information is to outline your options for follow-up care. We provide all patients seen in our emergency department with a follow-up referral. The need for follow-up, as well as the timing and circumstances, are variable depending upon the specifics of your emergency department visit. If you don't have a primary care physician on staff, we will provide you with a referral. We always advise you to contact your personal physician following an emergency department visit to inform them of the circumstance of the visit and for follow-up with them and/or the need for any referrals to a consulting specialist. The emergency department will also refer you to a specialist when appropriate. This referral assures that you have the opportunity for follow-up care with a specialist. All of these measure are taken in an effort to provide you with optimal care, which includes your follow-up. Under all circumstances we always encourage you to contact your private physician who remains a resource for coordinating your care. When calling for follow-up care, please make the office aware that this follow-up is from your recent emergency room visit. If for any reason you are refused follow-up, please contact the [facility] Emergency Department at and asked to speak to the emergency department charge nurse. Sepsis Event Note (ED) - Evaluation Sepsis Screening Result: No Definite Risk - Focused Exam Vital Signs: Vital Signs Temp Pulse Resp BP Pulse Ox 11/10/19 16:43 86 16 100/76 98 11/10/19 15:24 97.4 F 98 20 117/74 97 - Assessment/Plan Assessment:: 19-year-old female presenting with signs and symptoms that could be explained by her significant alcohol consumption. However other etiologies need to be considered as well. Symptoms are primarily left-sided though she does report some right upper abdominal symptoms as well. If there are new LFT changes could consider right upper quadrant ultrasound to evaluate for biliary pathology but I think this is much less likely. GERD and gastritis are certainly considerations and will trial GI cocktail for this. Urine is pending urinalysis is pending. Renal colic needs to be considered as well. If lipase does not suggest acute pancreatitis and symptoms do not improve with GI cocktail and she has hematuria could consider CT scan to exclude renal colic. But in general I think this is much less likely. No signs of sepsis. GI cocktail, Zofran, LR and will reassess. 1700: Patient's labs are normal. Urinalysis does not show any signs of hematuria. Patient reports her symptoms have essentially resolved with a GI cocktail in the IV fluid and Zofran. Given this I would favor some mild alcohol gastritis of the cause of her symptoms. She is now resting comfortably she feels much better I think she is stable for discharge. Additional aftercare instructions provided and return precautions discussed and understood.
[2019-11-10 16:26] LABS: BLOOD UREA NITROGEN,BUN 7 mg/dL (7.0-18.0); CARBON DIOXIDE,CO2 25.4 mmol/L (21.0-32.0); CHLORIDE,CL 107 mmol/L (98-107); GLUCOSE RANDOM 83 mg/dL (74-106); LIPASE 97 U/L (73-393); POTASSIUM,K 3.8 mmol/L (3.5-5.1); SODIUM,NA 144 mmol/L (136-145)
[2019-11-10 18:21] VITALS: BP 106/63; PULSE 84
== END 2019-11-10 18:21 | disposition home or self-care (01) ==
LOC: MW.ED 15:13
DX: K29.20 Alcoholic gastritis without bleeding (principal)
CPT/HCPCS: 80053; 81001; 81025; 83690; 85025; 96361; 96374; 99284; A9270; J2405; J7120

== ENCOUNTER 2023-07-01 00:01 | Inpatient (IN) | payer BC ==
[2023-07-01] MEDS ORDERED: Sodium Chloride 0.9% 2.5 ML Syringe FLUSH PRN (00:14)
[2023-07-01] MEDS ORDERED: Carboprost Tromethamine 250 MCG/1 mL Vial IM PRN (00:14)
[2023-07-01] MEDS ORDERED: Misoprostol 25 MCG (1/4 of 100 MCG) Tab VAG PRN ×2 (00:14)
[2023-07-01] MEDS ORDERED: Water For Irrigation,Sterile 1,000 ML Container IRR PRN (00:14)
[2023-07-01] MEDS ORDERED: Sodium Chloride 0.9% 20 ML SDV IV PRN (00:14)
[2023-07-01] MEDS ORDERED: Terbutaline 1 MG/ML SDV SUBCUT PRN (00:14)
[2023-07-01] MEDS ORDERED: Nalbuphine 10 MG/0.5 ML Syringe IVPUSH PRN (00:14)
[2023-07-01] MEDS ORDERED: Misoprostol 200 MCG Tab PO PRN (00:14)
[2023-07-01] MEDS ORDERED: Lidocaine 1% 50 ML MDV INJECT PRN (00:14)
[2023-07-01] MEDS ORDERED: Sodium Chloride 0.9% 10 ML Syringe FLUSH PRN (00:14)
[2023-07-01] MEDS ORDERED: Oxytocin/0.9 % Sodium Chloride 30 UNIT/500 ML BAG IV SCH (00:15)
[2023-07-01] MEDS: Lactated Ringers 1,000 ML IV SCH (00:54)
[2023-07-01 01:09] LABS: HEMATOCRIT 32.3 % (37.0-47.0); MEAN CORPUSCULAR HEMOGLOBIN 30.1 pg (28.0-32.0); MEAN CORPUSCULAR HGB CONC 34.1 g/dL (32.0-36.0); MEAN CORPUSCULAR VOLUME 88.3 fL (83.0-99.0); MEAN PLATELET VOLUME 9.8 fL (9.4-12.3); PLATELET COUNT,PLT 234 K/uL (150-400); RED BLOOD CELL COUNT 3.66 M/uL (4.10-5.30); WHITE BLOOD CELL COUNT,WBC 13.59 K/uL (3.9-11.3)
[2023-07-01] MEDS ORDERED: Phenylephrine HCl 0.5 MG/5 ML AMP ONE (01:14)
[2023-07-01] MEDS ORDERED: Bupivacaine 0.5% 10 ML SDV ONE ×2 (01:14→08:57)
[2023-07-01] MEDS ORDERED: Ropivacaine HCl/PF 200 ML ONE (01:14)
[2023-07-01] MEDS: Ropivacaine HCl/PF 400 MG in Premix Bag 1 BAG EPIDUR SCH (01:28)
[2023-07-01] MEDS ORDERED: Phenylephrine HCl 0.5 MG/5 ML AMP IVPUSH PRN (01:39)
[2023-07-01] MEDS ORDERED: ePHEDrine 50 MG/ML SDV IVPUSH PRN ×2 (01:39)
[2023-07-01] MEDS: Oxytocin/0.9 % Sodium Chloride 30 UNIT/500 ML BAG IV SCH (04:00)
[2023-07-01] MEDS: Ondansetron 4 MG/2 ML SDV IVPUSH PRN (08:46)
[2023-07-01] MEDS ORDERED: fentaNYL 100 MCG/2 ML SDV ONE (08:57)
[2023-07-01] MEDS: Acetaminophen 500 MG Tab PO ONE (16:36)
[2023-07-01] MEDS: Methylergonovine 0.2 MG/1 ML Amp IM PRN (17:56)
[2023-07-01] MEDS: Tranexamic Acid IN NACL,ISO-OS 1,000 MG in Premix Bag 1 BAG IV PRN (17:58)
[2023-07-01] MEDS ORDERED: oxyCODONE 5 MG Tab PO PRN (18:09)
[2023-07-01] MEDS ORDERED: Docusate Sodium 100 MG Cap PO PRN (18:09)
[2023-07-01] MEDS ORDERED: Acetaminophen 500 MG Tab PO PRN (18:09)
[2023-07-01] MEDS ORDERED: Lanolin 100% Cream 7 GM Tube TOP PRN (18:09)
[2023-07-01] MEDS: Ibuprofen 800 MG Tab PO PRN (18:49)
[2023-07-01 18:52] LABS: PH,UMBILICAL ARTERIAL 7.176 (7.18-7.38); PH,UMBILICAL VENOUS 7.301 (7.25-7.45)
[2023-07-01] MEDS: Witch Hazel Medicated Pads 40/Jar TOP PRN (18:59)
[2023-07-01] MEDS: Benzocaine/Menthol 20%-0.5% Spray 78 GM Cannister TOP PRN (19:00)
[2023-07-02 06:07] LABS: HEMATOCRIT 28.8 % (37.0-47.0); HEMOGLOBIN 9.4 g/dL (12.0-16.0); MEAN CORPUSCULAR HEMOGLOBIN 29.7 pg (28.0-32.0); MEAN CORPUSCULAR HGB CONC 32.6 g/dL (32.0-36.0); MEAN CORPUSCULAR VOLUME 91.1 fL (83.0-99.0); MEAN PLATELET VOLUME 9.6 fL (9.4-12.3); PLATELET COUNT,PLT 175 K/uL (150-400); RED BLOOD CELL COUNT 3.16 M/uL (4.10-5.30); WHITE BLOOD CELL COUNT,WBC 18.71 K/uL (3.9-11.3)
[2023-07-02 20:45] VITALS: BP 101/59; PULSE 73
== END 2023-07-02 20:10 | disposition home or self-care (01) | DRG 560 ==
LOC: UNDOADMOB 00:01 → MW.OB 00:01 → INTOOBSV 17:42 → OBSVTOIN 17:42 → MW.OB 22:26 → UNDODISOB 07-02 20:10
PROVIDERS: ADMIT Obstetrics & Gynecology; ATTEND Obstetrics & Gynecology
PROC: 10D07Z6 Extraction of Products of Conception, Vacuum, Via Natural or Artificial Opening (ICD-10-PCS; principal; 2023-07-01)
PROC: 10H07YZ Insertion of Other Device into Products of Conception, Via Natural or Artificial Opening (ICD-10-PCS; 2023-07-01)
PROC: 3E0R3BZ Introduction of Anesthetic Agent into Spinal Canal, Percutaneous Approach (ICD-10-PCS; 2023-07-02)
PROC: 00HU33Z Insertion of Infusion Device into Spinal Canal, Percutaneous Approach (ICD-10-PCS; 2023-07-02)
PROC: 0HQ9XZZ Repair Perineum Skin, External Approach (ICD-10-PCS; 2023-07-02)
PROC: 3E033VJ Introduction of Other Hormone into Peripheral Vein, Percutaneous Approach (ICD-10-PCS; 2023-07-02)
DX: O48.0 Post-term pregnancy (principal); Z37.0 Single live birth; O77.0 Labor and delivery complicated by meconium in amniotic fluid; O99.03 Anemia complicating the puerperium; O62.2 Other uterine inertia; O70.0 First degree perineal laceration during delivery; Z3A.41 41 weeks gestation of pregnancy; Z90.89 Acquired absence of other organs
CPT/HCPCS: 36415; 51702; 59025; 59409; 82803; 85027; 86592; 86850; 86900; 86901; A9270-GY; J0665; J2210; J2371; J2405; J2590; J2795; J3010; J3490; J7120